=== PATIENT | male | born 1990 | race Caucasian/White ===

== ENCOUNTER 2016-07-31 16:24 | Emergency (ER) | payer OTHER ==
[2016-07-31 16:34] VITALS: BP 134/81; PULSE 84; TEMP 98; BMI 28.8
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
== END 2016-07-31 17:47 | disposition home or self-care (01) ==
LOC: JERFT 16:24
DX: M54.6 Pain in thoracic spine (principal); V43.62XA Car passenger injured in collision with other type car in traffic accident, initial encounter; Y93.89 Activity, other specified; Y92.410 Unspecified street and highway as the place of occurrence of the external cause; Y99.0 Civilian activity done for income or pay; F17.210 Nicotine dependence, cigarettes, uncomplicated
CPT/HCPCS: 99281-25

== ENCOUNTER 2016-12-29 21:58 | Emergency (ER) | payer OTHER ==
[2016-12-29 22:04] VITALS: BP 121/76; PULSE 91; TEMP 97.9; BMI 27.3
[2016-12-29] MEDS ORDERED: predniSONE 20 MG TABLET (UD) PO ONE (22:14)
--- NOTE | 2016-12-29 22:20 | PDOC ---
History of Present Illness - General Chief Complaint: Poison [place],Poison Germán Exposure Stated Complaint: POISON GERMÁN/[facility] Time Seen by Provider: 12/29/16 22:06 History Source: Patient Exam Limitations: No Limitations - History of Present Illness Initial Comments: 12/29/16 22:14 26yo Male patient presents to ED c/o poison germán exposure. Patient states he was working out in yard on Wednesday, began itching really bad Wednesday with rash to bilateral upper extremities, LLE, and now face. Patient has been using Calamine lotion with minimal relief. He denies any other complaints at this time. Timing/Duration: reports: week Severity: Yes: moderate Location: reports: extremities, face Respiratory Risk Factors: reports: other Modifying Factors: improves with: calamine lotion Associated Symptoms: reports: rash Past History - Travel Traveled outside of the country in the last 30 days: No Close contact w/someone who was outside of country & ill: No - Past Medical History Allergies/Adverse Reactions: Allergies Allergy/AdvReac Type Severity Reaction Status Date / Time No Known Allergies Allergy Verified 12/29/16 22:04 Home Medications: Ambulatory Orders Famotidine [Pepcid -] 40 mg PO DAILY #7 tablet 12/29/16 Prednisone [Deltasone -] 10 mg PO ASDIR #17 tab 12/29/16 Asthma: No Diabetes: No HTN: No - Surgical History Orthopedic Surgery: Yes (ORIF of right elbow) - Immunization History Td Vaccination: Yes (04/2011) TDAP Vaccination: Yes Immunization Up to Date: Yes - Psycho/Social/Smoking Cessation Hx Anxiety: Yes Suicidal Ideation: No Smoking Status: Yes Smoking History: Current every day smoker Have you smoked in the past 12 months: No Number of Cigarettes Smoked Daily: 5 If you are a former smoker, when did you quit?: 2009 Cigars Per Day: 0 Information on smoking cessation initiated: No 'Breaking Loose' booklet given: 03/15/14 Hx Alcohol Use: No Drug/Substance Use Hx: No Substance Use Type: None Review of Systems - Review of Systems Able to Perform ROS?: Yes Is the patient limited [place] proficient: No Integumentary: Yes: Erythema, Pruritus, Rash All Other Systems: Reviewed and Negative *Physical Exam - Vital Signs Last Vital Signs Temp Pulse Resp BP Pulse Ox 97.9 F 91 H 18 121/76 98 12/29/16 21:59 12/29/16 21:59 12/29/16 21:59 12/29/16 21:59 12/29/16 21:59 - Physical Exam General Appearance: Yes: Nourished, Appropriately Dressed. No: Apparent Distress, Mild Distress, Moderate Distress, Severe Distress Respiratory/Chest: positive: Lungs Clear, Normal Breath Sounds. negative: Chest Tender, Respiratory Distress, Accessory Muscle Use, Labored Respiration Cardiovascular: positive: Regular Rhythm, Regular Rate Lymphatic: negative: Adenopathy Musculoskeletal: positive: Normal Inspection. negative: CVA Tenderness, Vertebral Tenderness Extremity: positive: Normal Capillary Refill, Normal Inspection, Normal Range of Motion, Erythema. negative: Pedal Edema, Swelling, Calf Tenderness Integumentary: positive: Normal Color, Dry, Warm, Erythema, Rash Neurologic: positive: tacking stitch remover II-XII NML intact, Fully Oriented, Alert, Normal Mood/ Affect, Normal Response, Motor Strength 5/5 *DC/Admit/Observation/Transfer Diagnosis at time of Disposition: Poison germán dermatitis Contact dermatitis Qualifiers: Contact dermatitis type: irritant Contact dermatitis trigger: non-food plants Qualified Code(s): L24.7 - Irritant contact dermatitis due to plants, except food - Discharge Dispostion Disposition: HOME Condition at time of disposition: Stable Admit: No - Prescriptions Prescriptions: Prednisone [Deltasone -] 10 mg PO ASDIR #17 tab Famotidine [Pepcid -] 40 mg PO DAILY #7 tablet - Patient Instructions Printed Discharge Instructions: DI for Contact Dermatitis, Poison Germán, Poison [place], Poison [place] Additional Instructions: Take medications as prescribed. Continue taking medications even when feeling better. Purchase Zanfel (Soap/Wash) to physically remove oils from skin. Return if symptoms worsen or any concerns for further evaluation. Avoid touching your face. Wash hands frequently. Follow up with your primary care provider as needed. Print Language: TAJIK
[2016-12-29] MEDS ORDERED: predniSONE 20 MG TABLET (UD) ONE (22:41)
== END 2016-12-29 22:39 | disposition home or self-care (01) ==
LOC: JER 21:58
DX: L23.7 Allergic contact dermatitis due to plants, except food (principal)
CPT/HCPCS: 99282-25

== ENCOUNTER 2021-04-20 18:00 | Emergency (ER) | payer OTHER, BC ==
[2021-04-20 18:42] VITALS: BP 126/86; PULSE 103; TEMP 98.8; BMI 28.0
[2021-04-20 19:00] LABS: ALBUMIN 5.2 g/dl (3.4-5.0); CALCIUM 9.8 mg/dl (8.5-10); CREATININE 0.8 mg/dl (0.55-1.3); TOT PROT 8.2 g/dl (6.4-8.2)
[2021-04-20 20:02] LABS: BASO % 0.6 % (0-2.0); EOS % 2.8 % (0-4.5); HEMATOCRIT 45.1 % (35.4-49); HEMOGLOBIN 15.2 GM/dL (11.7-16.9); LYMPH % 32.6 % (8-40); MCH 28.6 pg (25.7-33.7); MCHC 33.8 g/dl (32.0-35.9); MEAN CELL VOLUME 84.7 fl (80-96); MEAN PLT VOLUME 8.6 fl (7.5-11.1); MONO % 10.6 % (3.8-10.2); NEUT % 53.4 % (42.8-82.8); PLATELET COUNT 276 10^3/uL (134-434); RBC 5.32 M/mm3 (4.00-5.60); RDW 13.9 % (11.9-15.9); WHITE BLOOD COUNT 6.7 K/mm3 (4.0-10.0)
== END 2021-04-20 20:32 | disposition home or self-care (01) ==
LOC: FER 18:00
DX: R00.2 Palpitations (principal)
CPT/HCPCS: 36415; 80053; 84443; 84484; 85025; 93005; 99284-25

== ENCOUNTER 2022-11-12 18:16 | Emergency (ER) | payer BC, OTHER ==
[2022-11-12 18:41] VITALS: BP 120/80; PULSE 82; RESP 16; TEMP 98.5; BMI 28.0
[2022-11-12 20:19] LABS: HEMATOCRIT 44.9 % (35.4-49); HEMOGLOBIN 15.3 G/dL (11.7-16.9); MCH 29.4 pg (25.7-33.7); MCHC 34.1 g/dl (32.0-35.9); MEAN CELL VOLUME 86.2 fl (80-96); MEAN PLT VOLUME 8.7 fl (7.5-11.1); PLATELET COUNT 265.2 10^3/uL (134-434); RBC 5.21 10^6/uL (4.00-5.60); RDW 14.5 % (11.9-15.9); WHITE BLOOD COUNT 6.2 10^3/uL (4.0-10.8)
[2022-11-12 20:39] LABS: ALBUMIN 4.5 g/dl (3.4-5.0); ALK PHOS 77 U/L (45-117); ANION GAP 4 MMOL/L (8-16); BILIRUBIN,TOTAL 0.3 mg/dl (0.2-1); CALCIUM 9.3 mg/dl (8.5-10); CHLORIDE 105 mmol/L (98-107); CO2 29 mmol/L (21-32); CREATININE 0.8 mg/dl (0.55-1.3); GLUCOSE,RANDOM 96 mg/dl (74-106); POTASSIUM 4.3 mmol/L (3.5-5.1); SGOT/AST 17 U/L (15-37); SGPT/ALT 19 U/L (13-61); SODIUM 138 mmol/L (136-145); TOT PROT 7.4 g/dl (6.4-8.2)
== END 2022-11-12 21:13 | disposition home or self-care (01) ==
LOC: FER 18:16
DX: R07.9 Chest pain, unspecified (principal)
CPT/HCPCS: 36415; 80053; 82550; 84484; 85027; 93005; 99284-25